=== PATIENT | male | born 1955 | race Caucasian/White ===

== ENCOUNTER 2021-02-25 15:19 | Observation (INO) | payer MEDICARE, OTHER ==
[~2021-02-25] VITALS: Ht 172.7 cm; Wt 70.8 kg
[2021-02-25 15:54] LABS: HEMOGLOBIN 13.3 gm/dl (14.0-17.5); RED BLOOD COUNT 4.21 M/UL (4.20-5.50); WHITE BLOOD COUNT 4.3 K/UL (4.5-11.0)
[2021-02-25 16:24] LABS: BUN/CREATININE RATIO 19 (0-10)
[2021-02-26 03:45] LABS: HEMOGLOBIN 13.5 gm/dl (14.0-17.5); RED BLOOD COUNT 4.3 M/UL (4.20-5.50)
[2021-02-26 03:50] LABS: WHITE BLOOD COUNT 5.4 K/UL (4.5-11.0)
[2021-02-26 04:17] LABS: BUN/CREATININE RATIO 17 (0-10)
[2021-02-26] MEDS ORDERED: HYDROCODON-ACE1 EAC2 PO (14:29)
[2021-02-26] MEDS ORDERED: GABAPENTIN800 MG PO (14:29)
[2021-02-26] MEDS ORDERED: NITROGLYCERIN0.4 MG SL (15:04)
[2021-02-26] MEDS ORDERED: ISOSORBIDE MONO30 MG PO (15:04)
[2021-02-26] MEDS ORDERED: CLOPIDOGREL75 MG PO (15:04)
[2021-02-26] MEDS ORDERED: ATORVASTATIN CA20 MG PO (15:04)
== END 2021-02-26 17:21 | disposition home or self-care (01) ==
LOC: ER1 15:19 → CDU 17:04 → MED SURG 4 18:47
PROVIDERS: Emergency Medicine; Physician Assistant; ADMIT Internal Medicine
DX: R07.89 Other chest pain (principal); R94.39 Abnormal result of other cardiovascular function study; R55 Syncope and collapse; R00.1 Bradycardia, unspecified; R53.1 Weakness; E78.5 Hyperlipidemia, unspecified; G89.29 Other chronic pain; R51.9 Headache, unspecified; Z20.822 Contact with and (suspected) exposure to COVID-19; Z88.6 Allergy status to analgesic agent; Z85.46 Personal history of malignant neoplasm of prostate; Z98.890 Other specified postprocedural states
CPT/HCPCS: ECHO; 36415; 70450; 71045; 72125; 78452; 80048; 80053; 82550; 82553; 83735; 83874; 84484; 85025; 85379; 93005; 93017; 93306; 93880; 99285; A9502; G0378; J2785; Q9967; U0002